=== PATIENT | female | born 1990 | race Caucasian/White ===

== ENCOUNTER 2016-12-29 18:01 | Emergency (ER) | payer SELFPAY ==
[~2016-12-29] VITALS: Ht 162.6 cm; Wt 48.7 kg
[~2016-12-29 18:01] MED LIST: BACTRIM,SEPT1 TABLET PO; BIOTIN10000 MC1 PO; CITRATE OF MAG296 ML PO; ENDOCET 5-3251 EACH PO; FLAGYL500 MG PO; FLEXERIL10 MG PO; IMITREX100 MG PO; MACROBID100 MG PO; MICROGESTIN1 EAC1 PO; MICROGESTIN1 EACH PO; MIRALAX17 GM PO; NAPROSYN500 MG PO; NAPROXEN500 MG PO; NO MEDICATIONS; PEPCID40 MG PO; REGLAN10 MG PO; TYLENOL WITH C1 EACH PO; WOMEN'S DAILY1 EAC1 PO
[2016-12-29 19:31] LABS: HEMATOCRIT 39.1 % (36.0-46.0); MCH 28.6 PG (29.0-34.0); MCHC 33.5 G/DL (30.0-36.0); MCV 85.4 FL (83-99); MEAN PLAT.VOLUME 8.7 uM^3 (9.5-12.4); PLATELET COUNT 260 K/uL (156-360); RBC DIS.WIDTH-CV 11.9 % (11.8-14.6); RBC DIS.WIDTH-SD 36.6 % (39-53); RED BLOOD COUNT 4.58 M/uL (3.80-5.20); WHITE BLOOD COUNT 11.7 K/uL (4.1-10.2)
[2016-12-29 19:39] LABS: CHLORIDE 108 mEq/L (99-109); POTASSIUM 4.2 mEq/L (3.7-5.4); SODIUM 139 mEq/L (136-147)
[2016-12-29 19:41] LABS: GLUCOSE 90 mg/dL (70-99)
[2016-12-29 19:43] LABS: ANION GAP 7 MEQ/L (2-14)
[2016-12-29 19:45] LABS: GFR ESTIMATE (CALCULATED) > 59 mL/min/
[2016-12-29 19:46] LABS: UREA NITROGEN (BUN) 9 mg/dL (9-23)
[2016-12-29 19:47] LABS: ADD MIUA? YES; BILIRUBIN NEGATIVE; BLOOD MODERATE; COLOR YELLOW ((YELLOW)); GLUCOSE (STRIP) NEGATIVE; KETONES NEGATIVE; LEUKOCYTES MODERATE; NITRITE NEGATIVE; PROTEIN (STRIP) 30; UROBILINOGEN 0.2 MG/DL (0.2-1.0)
[2016-12-29 19:53] LABS: INTERNAL CONTROL VALID? YES
[2016-12-29 20:40] LABS: EPITHELIAL CELLS 1+ /HPF; RED BLOOD CELLS 20-30 /HPF (0-5); WHITE BLOOD CELLS 30-40 /HPF (0-5)
[2016-12-29 20:41] LABS: BACTERIA 2+ /HPF; CASTS NONE SEEN /LPF; CRYSTALS NONE SEEN; MUCUS TRACE /LPF; UCUL ADDED? YES
[2016-12-29] MEDS ORDERED: MACROBID100 MG PO (22:04)
[2016-12-29] MEDS ORDERED: PERCOCET 5/31 TABLET PO (22:04)
[2016-12-29] MEDS ORDERED: ZOFRAN ODT4 MG PO (22:04)
[2016-12-29 22:17] VITALS: BP 112/64
== END 2016-12-29 22:19 | disposition home or self-care (01) ==
LOC: EME 18:01
PROVIDERS: Emergency Medicine
DX: N39.0 Urinary tract infection, site not specified (principal); R10.9 Unspecified abdominal pain; N83.202 Unspecified ovarian cyst, left side; K59.00 Constipation, unspecified; Z87.442 Personal history of urinary calculi
CPT/HCPCS: 74176; 80048; 81003; 84703; 85027; 87077; 87086; 87186; 99281; 99284; J1885

== ENCOUNTER 2017-01-16 22:38 | Emergency (ER) | payer SELFPAY ==
[~2017-01-16] VITALS: Ht 162.6 cm; Wt 47.6 kg
[~2017-01-16 22:38] MED LIST changes: +PERCOCET 5/31 TABLET PO; +ZOFRAN ODT4 MG PO
[2017-01-16 23:34] LABS: HEMATOCRIT 36.9 % (36.0-46.0); MCH 27.6 PG (29.0-34.0); MCHC 33.1 G/DL (30.0-36.0); MCV 83.5 FL (83-99); MEAN PLAT.VOLUME 8.9 uM^3 (9.5-12.4); PLATELET COUNT 408 K/uL (156-360); RBC DIS.WIDTH-CV 11.9 % (11.8-14.6); RED BLOOD COUNT 4.42 M/uL (3.80-5.20); WHITE BLOOD COUNT 10.8 K/uL (4.1-10.2)
[2017-01-16 23:45] LABS: CHLORIDE 105 mEq/L (99-109); POTASSIUM 3.6 mEq/L (3.7-5.4); SODIUM 139 mEq/L (136-147)
[2017-01-16 23:47] LABS: GLUCOSE 88 mg/dL (70-99)
[2017-01-16 23:48] LABS: ANION GAP 11 MEQ/L (2-14)
[2017-01-16 23:49] LABS: TOTAL BILIRUBIN 0.3 mg/dL (0.0-1.0)
[2017-01-16 23:50] LABS: ALKALINE PHOSPHATASE 59 IU/L (3-129)
[2017-01-16 23:51] LABS: GFR ESTIMATE (CALCULATED) > 59 mL/min/
[2017-01-16 23:52] LABS: UREA NITROGEN (BUN) 10 mg/dL (9-23)
[2017-01-17] LABS: QUANTITATIVE HCG 1826.3 MIU/ML
[2017-01-17 00:29] LABS: ADD MIUA? YES; BILIRUBIN NEGATIVE; BLOOD SMALL; COLOR YELLOW ((YELLOW)); GLUCOSE (STRIP) NEGATIVE; KETONES NEGATIVE; LEUKOCYTES NEGATIVE; NITRITE NEGATIVE; PROTEIN (STRIP) NEGATIVE; SPECIFIC GRAVITY 1.013 (1.000-1.030); UROBILINOGEN 0.2 MG/DL (0.2-1.0)
[2017-01-17 00:35] LABS: BACTERIA NONE SEEN /HPF; EPITHELIAL CELLS 1+ /HPF; MUCUS TRACE /LPF; RED BLOOD CELLS 0-5 /HPF (0-5); UCUL ADDED? NO; WHITE BLOOD CELLS 0-5 /HPF (0-5)
[2017-01-17 01:38] VITALS: BP 115/70
== END 2017-01-17 01:40 | disposition home or self-care (01) ==
LOC: EME 22:38 → EXP 22:38
DX: O26.891 Other specified pregnancy related conditions, first trimester (principal); R10.2 Pelvic and perineal pain; O34.81 Maternal care for other abnormalities of pelvic organs, first trimester; N83.202 Unspecified ovarian cyst, left side; R11.0 Nausea; M54.9 Dorsalgia, unspecified; Z87.442 Personal history of urinary calculi; Z3A.01 Less than 8 weeks gestation of pregnancy
CPT/HCPCS: 76801; 80053; 81003; 84702; 85027; 99281; 99283

== ENCOUNTER 2017-01-30 18:10 | Emergency (ER) | payer SELFPAY ==
[~2017-01-30] VITALS: Ht 160 cm; Wt 46.0 kg
[2017-01-30 18:52] LABS: HEMATOCRIT 35.9 % (36.0-46.0); MCH 28.3 PG (29.0-34.0); MCV 83.3 FL (83-99); MEAN PLAT.VOLUME 8.7 uM^3 (9.5-12.4); PLATELET COUNT 305 K/uL (156-360); RBC DIS.WIDTH-CV 12.1 % (11.8-14.6); RED BLOOD COUNT 4.31 M/uL (3.80-5.20); WHITE BLOOD COUNT 8.6 K/uL (4.1-10.2)
[2017-01-30 19:00] LABS: CHLORIDE 103 mEq/L (99-109); POTASSIUM 3.8 mEq/L (3.7-5.4); SODIUM 136 mEq/L (136-147)
[2017-01-30 19:01] LABS: GLUCOSE 77 mg/dL (70-99)
[2017-01-30 19:03] LABS: ANION GAP 9 MEQ/L (2-14)
[2017-01-30 19:05] LABS: GFR ESTIMATE (CALCULATED) > 59 mL/min/
[2017-01-30 19:06] LABS: UREA NITROGEN (BUN) 7 mg/dL (9-23)
[2017-01-30 19:08] LABS: ADD MIUA? YES; BILIRUBIN NEGATIVE; BLOOD NEGATIVE; COLOR YELLOW ((YELLOW)); GLUCOSE (STRIP) NEGATIVE; KETONES NEGATIVE; LEUKOCYTES NEGATIVE; NITRITE NEGATIVE; PROTEIN (STRIP) 30; SPECIFIC GRAVITY 1.025 (1.000-1.030); UROBILINOGEN 0.2 MG/DL (0.2-1.0)
[2017-01-30 19:12] LABS: BACTERIA NONE SEEN /HPF; EPITHELIAL CELLS 1+ /HPF; MUCUS 2+ /LPF; RED BLOOD CELLS NONE SEEN /HPF (0-5); UCUL ADDED? NO; WHITE BLOOD CELLS NONE SEEN /HPF (0-5)
[2017-01-30 19:16] LABS: QUANTITATIVE HCG 14718.4 MIU/ML
[2017-01-30 20:56] VITALS: BP 113/60
== END 2017-01-30 20:57 | disposition home or self-care (01) ==
LOC: EME 18:10 → EXP 18:10
PROVIDERS: Physician Assistant
DX: O20.0 Threatened abortion (principal); O34.81 Maternal care for other abnormalities of pelvic organs, first trimester; N83.202 Unspecified ovarian cyst, left side; Z3A.01 Less than 8 weeks gestation of pregnancy; Z87.442 Personal history of urinary calculi
CPT/HCPCS: 76801; 80048; 81003; 84702; 85027; 86900; 86901; 99281; 99284

== ENCOUNTER 2017-02-24 16:32 | Emergency (ER) | payer SELFPAY ==
[~2017-02-24] VITALS: Ht 160 cm; Wt 46.0 kg
[2017-02-24 17:09] LABS: ADD MIUA? YES; BILIRUBIN NEGATIVE; BLOOD SMALL; COLOR YELLOW ((YELLOW)); GLUCOSE (STRIP) NEGATIVE; KETONES NEGATIVE; LEUKOCYTES MODERATE; NITRITE NEGATIVE; PROTEIN (STRIP) NEGATIVE; SPECIFIC GRAVITY 1.019 (1.000-1.030); UROBILINOGEN 0.2 MG/DL (0.2-1.0)
[2017-02-24 17:38] LABS: BACTERIA 1+ /HPF; EPITHELIAL CELLS 1+ /HPF; MUCUS NONE SEEN /LPF; RED BLOOD CELLS 0-5 /HPF (0-5); WHITE BLOOD CELLS 40-50 /HPF (0-5)
[2017-02-24 17:44] LABS: HEMATOCRIT 39.1 % (36.0-46.0); MCH 27.9 PG (29.0-34.0); MCHC 33.5 G/DL (30.0-36.0); MCV 83.2 FL (83-99); MEAN PLAT.VOLUME 8.8 uM^3 (9.5-12.4); PLATELET COUNT 268 K/uL (156-360); RBC DIS.WIDTH-CV 12.3 % (11.8-14.6); RBC DIS.WIDTH-SD 37.5 % (39-53); WHITE BLOOD COUNT 9.4 K/uL (4.1-10.2)
[2017-02-24 17:52] LABS: CHLORIDE 106 mEq/L (99-109); POTASSIUM 3.7 mEq/L (3.7-5.4); SODIUM 139 mEq/L (136-147)
[2017-02-24 17:54] LABS: GLUCOSE 91 mg/dL (70-99)
[2017-02-24 17:56] LABS: ANION GAP 7 MEQ/L (2-14)
[2017-02-24 17:58] LABS: GFR ESTIMATE (CALCULATED) > 59 mL/min/
[2017-02-24 17:59] LABS: UREA NITROGEN (BUN) 7 mg/dL (9-23)
[2017-02-24 18:07] LABS: QUANTITATIVE HCG 8150.7 MIU/ML
[2017-02-24] MEDS ORDERED: KEFLEX500 MG PO (18:17)
[2017-02-24 18:22] VITALS: BP 92/57
== END 2017-02-24 18:22 | disposition home or self-care (01) ==
LOC: EME 16:32
PROVIDERS: Physician Assistant
DX: O23.41 Unspecified infection of urinary tract in pregnancy, first trimester (principal); Z3A.10 10 weeks gestation of pregnancy; Z87.442 Personal history of urinary calculi
CPT/HCPCS: 80048; 81003; 84702; 85027; 99281; 99284

== ENCOUNTER 2017-03-21 17:53 | Emergency (ER) | payer OTHER ==
[~2017-03-21 17:53] MED LIST changes: +KEFLEX500 MG PO
== END 2017-03-21 18:50 | disposition left against medical advice (07) ==
LOC: EME 17:53
DX: R10.2 Pelvic and perineal pain (principal); Z53.21 Procedure and treatment not carried out due to patient leaving prior to being seen by health care provider

== ENCOUNTER 2017-06-05 09:14 | Emergency (ER) | payer OTHER ==
[~2017-06-05] VITALS: Ht 160 cm; Wt 45.5 kg
[2017-06-05 09:55] LABS: EOSINOPHIL COUNT 0.2 K/uL (0-0.3); HEMATOCRIT 39.7 % (36.0-46.0); IMMATURE GRANULOCYTE (%) 0.4 % (0.0-0.7); IMMATURE GRANULOCYTE COUNT 0.1 K/uL; INSTRUMENT ABS NEUTROPHIL CT 14.1 K/uL; LYMPHOCYTE COUNT 0.5 K/uL (1.0-2.8); MCV 82.4 FL (83-99); MEAN PLAT.VOLUME 8.6 uM^3 (9.5-12.4); MONOCYTE (%) 4.6 % (3-12); MONOCYTE COUNT 0.7 K/uL (0-0.8); NEUTROPHIL (%) 90.4 % (45-76); NEUTROPHIL COUNT 14.1 K/uL (1.8-6.4); PLATELET COUNT 225 K/uL (156-360); RBC DIS.WIDTH-CV 12.2 % (11.8-14.6); RED BLOOD COUNT 4.82 M/uL (3.80-5.20); WHITE BLOOD COUNT 15.6 K/uL (4.1-10.2)
[2017-06-05 10:04] LABS: CHLORIDE 111 mEq/L (99-109); POTASSIUM 3.5 mEq/L (3.7-5.4); SODIUM 141 mEq/L (136-147)
[2017-06-05 10:06] LABS: GLUCOSE 106 mg/dL (70-99)
[2017-06-05 10:07] LABS: ANION GAP 13 MEQ/L (2-14)
[2017-06-05 10:09] LABS: GFR ESTIMATE (CALCULATED) > 59 mL/min/
[2017-06-05 10:10] LABS: UREA NITROGEN (BUN) 10 mg/dL (9-23)
[2017-06-05 10:14] LABS: INTER. NORMALIZED RATIO 1.1; PROTHROMBIN TIME 12.5 SEC (10.2-12.9)
[2017-06-05 10:15] LABS: LIPASE 19 U/L (1.0-51.0); TROP-I INTERPRETATION NEGATIVE; TROPONIN-I < 0.01 ng/mL (0.0-0.30)
[2017-06-05 10:16] LABS: PTT 29.1 SEC (25-37)
[2017-06-05 10:20] LABS: QUANTITATIVE HCG < 4.0 MIU/ML
[2017-06-05 13:05] LABS: ADD MIUA? YES; BILIRUBIN NEGATIVE; BLOOD SMALL; COLOR COLORLESS ((YELLOW)); GLUCOSE (STRIP) NEGATIVE; KETONES NEGATIVE; LEUKOCYTES NEGATIVE; NITRITE NEGATIVE; PROTEIN (STRIP) NEGATIVE; SPECIFIC GRAVITY 1.026 (1.000-1.030); UROBILINOGEN 0.2 MG/DL (0.2-1.0)
[2017-06-05 13:07] LABS: BACTERIA NONE SEEN /HPF; EPITHELIAL CELLS RARE /HPF; MUCUS TRACE /LPF; RED BLOOD CELLS 0-5 /HPF (0-5); UCUL ADDED? NO; WHITE BLOOD CELLS 0-5 /HPF (0-5)
[2017-06-05] MEDS ORDERED: ZOFRAN ODT4 MG PO (13:48)
[2017-06-05 14:18] VITALS: BP 113/66
== END 2017-06-05 14:19 | disposition home or self-care (01) ==
LOC: EME 09:14
PROVIDERS: Emergency Medicine
DX: K52.9 Noninfective gastroenteritis and colitis, unspecified (principal); M54.5 Low back pain; E86.0 Dehydration; Z87.442 Personal history of urinary calculi; Z86.73 Personal history of transient ischemic attack (TIA), and cerebral infarction without residual deficits
CPT/HCPCS: 71020; 71275; 74176; 80048; 81003; 83690; 84484; 84702; 85025; 85379; 85610; 85730; 93005; 99281; 99285; J2270; J2405; J3010; J7030

== ENCOUNTER 2017-06-14 02:38 | Emergency (ER) | payer OTHER ==
[2017-06-14 03:58] LABS: HEMATOCRIT 40.2 % (36.0-46.0); MCHC 33.8 G/DL (30.0-36.0); MCV 82.7 FL (83-99); MEAN PLAT.VOLUME 8.7 uM^3 (9.5-12.4); RBC DIS.WIDTH-CV 12.4 % (11.8-14.6); RBC DIS.WIDTH-SD 37.7 % (39-53); RED BLOOD COUNT 4.86 M/uL (3.80-5.20); WHITE BLOOD COUNT 13.2 K/uL (4.1-10.2)
[2017-06-14 03:59] LABS: PLATELET COUNT 383 K/uL (156-360)
[2017-06-14 04:01] LABS: CHLORIDE 108 mEq/L (99-109); POTASSIUM 3.4 mEq/L (3.7-5.4); SODIUM 142 mEq/L (136-147)
[2017-06-14 04:02] LABS: GLUCOSE 113 mg/dL (70-99)
[2017-06-14 04:04] LABS: ANION GAP 14 MEQ/L (2-14)
[2017-06-14 04:06] LABS: GFR ESTIMATE (CALCULATED) > 59 mL/min/
[2017-06-14 04:07] LABS: UREA NITROGEN (BUN) 7 mg/dL (9-23)
[2017-06-14 04:13] LABS: TROP-I INTERPRETATION NEGATIVE; TROPONIN-I < 0.01 ng/mL (0.0-0.30)
[2017-06-14 05:45] LABS: ADD MIUA? YES; BILIRUBIN NEGATIVE; BLOOD MODERATE; COLOR YELLOW ((YELLOW)); GLUCOSE (STRIP) NEGATIVE; KETONES NEGATIVE; LEUKOCYTES NEGATIVE; NITRITE NEGATIVE; PROTEIN (STRIP) NEGATIVE; SPECIFIC GRAVITY 1.011 (1.000-1.030); UROBILINOGEN 0.2 MG/DL (0.2-1.0)
[2017-06-14 05:47] LABS: INTERNAL CONTROL VALID? YES
[2017-06-14 05:48] LABS: BACTERIA NONE SEEN /HPF; EPITHELIAL CELLS RARE /HPF; MUCUS 1+ /LPF; RED BLOOD CELLS 0-5 /HPF (0-5); UCUL ADDED? NO; WHITE BLOOD CELLS 0-5 /HPF (0-5)
[2017-06-14] MEDS ORDERED: IBUPROFEN600 MG PO (07:15)
[2017-06-14 08:50] VITALS: BP 103/72
== END 2017-06-14 08:50 | disposition home or self-care (01) ==
LOC: EME 02:38
PROVIDERS: Emergency Medicine
DX: R10.9 Unspecified abdominal pain (principal); N83.209 Unspecified ovarian cyst, unspecified side; Z87.442 Personal history of urinary calculi
CPT/HCPCS: 71020; 74176; 80048; 81003; 84484; 84703; 85027; 93005; 99281; 99284; J1200; J2765; J7030

== ENCOUNTER 2017-07-08 14:21 | Emergency (ER) | payer OTHER ==
[~2017-07-08] VITALS: Ht 160 cm; Wt 42.3 kg
[~2017-07-08 14:21] MED LIST changes: +IBUPROFEN600 MG PO
[2017-07-08 14:58] LABS: ADD MIUA? YES; BILIRUBIN NEGATIVE; BLOOD SMALL; COLOR YELLOW ((YELLOW)); GLUCOSE (STRIP) NEGATIVE; KETONES NEGATIVE; LEUKOCYTES MODERATE; NITRITE NEGATIVE; PROTEIN (STRIP) 30; SPECIFIC GRAVITY 1.021 (1.000-1.030); UROBILINOGEN 0.2 MG/DL (0.2-1.0)
[2017-07-08 15:08] LABS: HEMATOCRIT 37.8 % (36.0-46.0); MCH 28.3 PG (29.0-34.0); MCHC 34.1 G/DL (30.0-36.0); MCV 82.9 FL (83-99); MEAN PLAT.VOLUME 9.1 uM^3 (9.5-12.4); PLATELET COUNT 272 K/uL (156-360); RBC DIS.WIDTH-CV 12.5 % (11.8-14.6); RBC DIS.WIDTH-SD 38.1 % (39-53); RED BLOOD COUNT 4.56 M/uL (3.80-5.20)
[2017-07-08 15:09] LABS: BACTERIA 1+ /HPF; EPITHELIAL CELLS 2+ /HPF; MUCUS 1+ /LPF; RED BLOOD CELLS RARE /HPF (0-5); UCUL ADDED? YES
[2017-07-08 15:10] LABS: CASTS NONE SEEN /LPF; CRYSTALS NONE SEEN
[2017-07-08 15:17] LABS: CHLORIDE 107 mEq/L (99-109); POTASSIUM 3.9 mEq/L (3.7-5.4); SODIUM 140 mEq/L (136-147)
[2017-07-08 15:20] LABS: GLUCOSE 92 mg/dL (70-99)
[2017-07-08 15:21] LABS: ANION GAP 12 MEQ/L (2-14)
[2017-07-08 15:22] LABS: TOTAL BILIRUBIN 0.9 mg/dL (0.0-1.0)
[2017-07-08 15:23] LABS: ALKALINE PHOSPHATASE 45 IU/L (3-129); GFR ESTIMATE (CALCULATED) > 59 mL/min/
[2017-07-08 15:24] LABS: UREA NITROGEN (BUN) 11 mg/dL (9-23)
[2017-07-08 15:34] LABS: QUANTITATIVE HCG 181.3 MIU/ML
[2017-07-08] MEDS ORDERED: KEFLEX500 MG PO (16:22)
[2017-07-08 17:18] VITALS: BP 120/64
[2017-07-10 13:42] LABS: CHLAMYDIA TRACHOMATIS NEGATIVE; NEISSERIA GONORRHOEAE NEGATIVE
== END 2017-07-08 17:19 | disposition home or self-care (01) ==
LOC: EME 14:21
PROVIDERS: Physician Assistant Medical
DX: O26.891 Other specified pregnancy related conditions, first trimester (principal); R10.2 Pelvic and perineal pain; N89.8 Other specified noninflammatory disorders of vagina; R11.0 Nausea; O23.41 Unspecified infection of urinary tract in pregnancy, first trimester; Z87.442 Personal history of urinary calculi
CPT/HCPCS: 76856; 80053; 81003; 83690; 84702; 85027; 87086; 87210; 87491; 87591; 99281; 99284; J0696

== ENCOUNTER 2017-07-12 10:37 | Emergency (ER) | payer OTHER ==
[~2017-07-12] VITALS: Ht 160 cm; Wt 41.6 kg
[2017-07-12 11:34] LABS: HEMATOCRIT 39.6 % (36.0-46.0); MCH 28.7 PG (29.0-34.0); MCHC 34.3 G/DL (30.0-36.0); MCV 83.5 FL (83-99); MEAN PLAT.VOLUME 9.2 uM^3 (9.5-12.4); PLATELET COUNT 301 K/uL (156-360); RBC DIS.WIDTH-CV 12.3 % (11.8-14.6); RBC DIS.WIDTH-SD 37.6 % (39-53); RED BLOOD COUNT 4.74 M/uL (3.80-5.20); WHITE BLOOD COUNT 8.9 K/uL (4.1-10.2)
[2017-07-12 11:43] LABS: CHLORIDE 104 mEq/L (99-109); POTASSIUM 3.6 mEq/L (3.7-5.4); SODIUM 138 mEq/L (136-147)
[2017-07-12 11:45] LABS: GLUCOSE 86 mg/dL (70-99)
[2017-07-12 11:46] LABS: ANION GAP 12 MEQ/L (2-14)
[2017-07-12 11:49] LABS: GFR ESTIMATE (CALCULATED) > 59 mL/min/; UREA NITROGEN (BUN) 11 mg/dL (9-23)
[2017-07-12 11:51] LABS: TROP-I INTERPRETATION NEGATIVE; TROPONIN-I < 0.01 ng/mL (0.0-0.30)
[2017-07-12 12:22] LABS: ALKALINE PHOSPHATASE 55 IU/L (3-129)
[2017-07-12 12:25] LABS: DIRECT BILIRUBIN 0.3 mg/dL (0.0-0.3); TOTAL BILIRUBIN 0.7 mg/dL (0.0-1.0)
[2017-07-12 12:26] LABS: LIPASE 33 U/L (1.0-51.0)
[2017-07-12 13:19] LABS: QUANTITATIVE HCG 968.2 MIU/ML
[2017-07-12] MEDS ORDERED: DICLEGIS DR 101 EACH PO (13:40)
[2017-07-12 13:50] VITALS: BP 125/73
== END 2017-07-12 14:42 | disposition home or self-care (01) ==
LOC: EME 10:37
DX: O26.899 Other specified pregnancy related conditions, unspecified trimester (principal); R07.89 Other chest pain; R11.0 Nausea; Z87.442 Personal history of urinary calculi
CPT/HCPCS: 71020; 80048; 80076; 83690; 84484; 84702; 85027; 93005; 99281; 99283

== ENCOUNTER 2017-07-23 06:30 | Emergency (ER) | payer OTHER ==
[~2017-07-23] VITALS: Ht 160 cm; Wt 41.7 kg
[~2017-07-23 06:30] MED LIST changes: +DICLEGIS DR 101 EACH PO
[2017-07-23 06:59] LABS: HEMATOCRIT 34.8 % (36.0-46.0); MCH 28.7 PG (29.0-34.0); MCHC 34.2 G/DL (30.0-36.0); MCV 84.1 FL (83-99); MEAN PLAT.VOLUME 8.8 uM^3 (9.5-12.4); PLATELET COUNT 265 K/uL (156-360); RBC DIS.WIDTH-CV 12.1 % (11.8-14.6); RBC DIS.WIDTH-SD 36.6 % (39-53); RED BLOOD COUNT 4.14 M/uL (3.80-5.20); WHITE BLOOD COUNT 7.7 K/uL (4.1-10.2)
[2017-07-23 07:13] LABS: CHLORIDE 107 mEq/L (99-109); POTASSIUM 3.3 mEq/L (3.7-5.4); SODIUM 140 mEq/L (136-147)
[2017-07-23 07:15] LABS: GLUCOSE 84 mg/dL (70-99)
[2017-07-23 07:16] LABS: ANION GAP 9 MEQ/L (2-14)
[2017-07-23 07:17] LABS: TOTAL BILIRUBIN 0.8 mg/dL (0.0-1.0)
[2017-07-23 07:18] LABS: ALKALINE PHOSPHATASE 41 IU/L (3-129)
[2017-07-23 07:19] LABS: GFR ESTIMATE (CALCULATED) > 59 mL/min/
[2017-07-23 07:20] LABS: UREA NITROGEN (BUN) 9 mg/dL (9-23)
[2017-07-23 07:27] LABS: QUANTITATIVE HCG 6430.5 MIU/ML
[2017-07-23 10:00] LABS: ADD MIUA? YES; BILIRUBIN NEGATIVE; BLOOD SMALL; COLOR YELLOW ((YELLOW)); GLUCOSE (STRIP) NEGATIVE; KETONES 20; LEUKOCYTES TRACE; NITRITE NEGATIVE; PROTEIN (STRIP) NEGATIVE; SPECIFIC GRAVITY 1.016 (1.000-1.030); UROBILINOGEN 0.2 MG/DL (0.2-1.0)
[2017-07-23 10:03] LABS: BACTERIA RARE /HPF; EPITHELIAL CELLS 1+ /HPF; MUCUS 3+ /LPF; RED BLOOD CELLS 0-5 /HPF (0-5); UCUL ADDED? YES
[2017-07-23] MEDS ORDERED: MACROBID100 MG PO (10:31)
[2017-07-23 10:56] VITALS: BP 92/52
== END 2017-07-23 10:57 | disposition home or self-care (01) ==
LOC: EME 06:30
DX: O23.41 Unspecified infection of urinary tract in pregnancy, first trimester (principal); O99.611 Diseases of the digestive system complicating pregnancy, first trimester; K21.0 Gastro-esophageal reflux disease with esophagitis; O20.8 Other hemorrhage in early pregnancy; M25.512 Pain in left shoulder; H53.8 Other visual disturbances; Z87.442 Personal history of urinary calculi; Z86.73 Personal history of transient ischemic attack (TIA), and cerebral infarction without residual deficits; Z3A.01 Less than 8 weeks gestation of pregnancy
CPT/HCPCS: 76801; 80053; 81003; 84702; 85027; 87086; 93005; 99281; 99285

== ENCOUNTER 2017-07-24 13:33 | Emergency (ER) | payer OTHER | END 2017-07-24 13:54 | disposition left against medical advice (07) | LOC: EME 13:33 | DX: R42 Dizziness and giddiness (principal); J02.9 Acute pharyngitis, unspecified; Z53.21 Procedure and treatment not carried out due to patient leaving prior to being seen by health care provider ==

== ENCOUNTER 2017-08-05 01:03 | Emergency (ER) | payer OTHER ==
[~2017-08-05] VITALS: Ht 160 cm; Wt 41.6 kg
[2017-08-05 01:24] LABS: ADD MIUA? YES; BILIRUBIN NEGATIVE; BLOOD NEGATIVE; COLOR YELLOW ((YELLOW)); GLUCOSE (STRIP) NEGATIVE; KETONES NEGATIVE; LEUKOCYTES TRACE; NITRITE NEGATIVE; PROTEIN (STRIP) NEGATIVE; SPECIFIC GRAVITY 1.021 (1.000-1.030); UROBILINOGEN 0.2 MG/DL (0.2-1.0)
[2017-08-05 01:30] LABS: BACTERIA RARE /HPF; EPITHELIAL CELLS 1+ /HPF; MUCUS 1+ /LPF; UCUL ADDED? NO; WHITE BLOOD CELLS 0-5 /HPF (0-5)
[2017-08-05 02:05] LABS: EOSINOPHIL (%) 6.6 % (0-5); EOSINOPHIL COUNT 0.7 K/uL (0-0.3); HEMATOCRIT 37.3 % (36.0-46.0); IMMATURE GRANULOCYTE (%) 0.1 % (0.0-0.7); INSTRUMENT ABS NEUTROPHIL CT 5.7 K/uL; LYMPHOCYTE COUNT 2.6 K/uL (1.0-2.8); MCH 28.5 PG (29.0-34.0); MCHC 33.5 G/DL (30.0-36.0); MEAN PLAT.VOLUME 8.4 uM^3 (9.5-12.4); MONOCYTE (%) 8.8 % (3-12); MONOCYTE COUNT 0.9 K/uL (0-0.8); NEUTROPHIL (%) 57.8 % (45-76); NEUTROPHIL COUNT 5.7 K/uL (1.8-6.4); PLATELET COUNT 300 K/uL (156-360); RBC DIS.WIDTH-CV 11.9 % (11.8-14.6); RBC DIS.WIDTH-SD 36.8 % (39-53); RED BLOOD COUNT 4.39 M/uL (3.80-5.20); WHITE BLOOD COUNT 9.8 K/uL (4.1-10.2)
[2017-08-05 02:14] LABS: CHLORIDE 107 mEq/L (99-109); POTASSIUM 3.6 mEq/L (3.7-5.4); SODIUM 139 mEq/L (136-147)
[2017-08-05 02:15] LABS: MAGNESIUM 2.1 mg/dL (1.3-2.7)
[2017-08-05 02:16] LABS: GLUCOSE 84 mg/dL (70-99)
[2017-08-05 02:18] LABS: ANION GAP 10 MEQ/L (2-14); TOTAL BILIRUBIN 0.3 mg/dL (0.0-1.0)
[2017-08-05 02:20] LABS: ALKALINE PHOSPHATASE 48 IU/L (3-129); GFR ESTIMATE (CALCULATED) > 59 mL/min/
[2017-08-05 02:21] LABS: UREA NITROGEN (BUN) 7 mg/dL (9-23)
[2017-08-05 02:24] LABS: LIPASE 43 U/L (1.0-51.0)
[2017-08-05 02:49] LABS: QUANTITATIVE HCG 29122.6 MIU/ML
[2017-08-05 04:30] VITALS: BP 109/62
== END 2017-08-05 04:32 | disposition home or self-care (01) ==
LOC: EME 01:03
PROVIDERS: Emergency Medicine
DX: O26.891 Other specified pregnancy related conditions, first trimester (principal); R10.2 Pelvic and perineal pain; N83.12 Corpus luteum cyst of left ovary; Z3A.08 8 weeks gestation of pregnancy; O99.341 Other mental disorders complicating pregnancy, first trimester; F32.9 Major depressive disorder, single episode, unspecified; Z86.73 Personal history of transient ischemic attack (TIA), and cerebral infarction without residual deficits; Z87.442 Personal history of urinary calculi; Z88.1 Allergy status to other antibiotic agents
CPT/HCPCS: 76801; 80053; 81003; 83690; 83735; 84702; 85025; 99281; 99284

== ENCOUNTER → 2017-08-28 15:55 | Emergency (ER) | payer OTHER ==
[~2017-08-28] VITALS: Ht 162.6 cm; Wt 41.8 kg
[2017-08-28 16:59] VITALS: BP 121/66
[2017-08-28 17:19] LABS: HEMATOCRIT 37.7 % (36.0-46.0); MCH 28.5 PG (29.0-34.0); MCHC 34.2 G/DL (30.0-36.0); MCV 83.4 FL (83-99); MEAN PLAT.VOLUME 8.5 uM^3 (9.5-12.4); PLATELET COUNT 285 K/uL (156-360); RBC DIS.WIDTH-CV 12.5 % (11.8-14.6); RBC DIS.WIDTH-SD 38.2 % (39-53); RED BLOOD COUNT 4.52 M/uL (3.80-5.20); WHITE BLOOD COUNT 10.8 K/uL (4.1-10.2)
[2017-08-28 17:24] LABS: ADD MIUA? YES; BILIRUBIN NEGATIVE; BLOOD SMALL; COLOR STRAW ((YELLOW)); GLUCOSE (STRIP) NEGATIVE; KETONES NEGATIVE; LEUKOCYTES TRACE; NITRITE NEGATIVE; PROTEIN (STRIP) NEGATIVE; SPECIFIC GRAVITY 1.009 (1.000-1.030); UROBILINOGEN 0.2 MG/DL (0.2-1.0)
[2017-08-28 17:27] LABS: CHLORIDE 105 mEq/L (99-109); POTASSIUM 3.7 mEq/L (3.7-5.4); SODIUM 136 mEq/L (136-147)
[2017-08-28 17:28] LABS: GLUCOSE 85 mg/dL (70-99)
[2017-08-28 17:30] LABS: ANION GAP 11 MEQ/L (2-14)
[2017-08-28 17:31] LABS: BACTERIA NONE SEEN /HPF; EPITHELIAL CELLS 1+ /HPF; MUCUS NONE SEEN /LPF; RED BLOOD CELLS 0-5 /HPF (0-5); UCUL ADDED? NO; WHITE BLOOD CELLS 0-5 /HPF (0-5)
[2017-08-28 17:32] LABS: GFR ESTIMATE (CALCULATED) > 59 mL/min/
[2017-08-28 17:33] LABS: UREA NITROGEN (BUN) 6 mg/dL (9-23)
[2017-08-28 17:58] LABS: QUANTITATIVE HCG 98681.5 MIU/ML
== END | disposition left against medical advice (07) ==
LOC: EME 15:55
DX: R10.9 Unspecified abdominal pain (principal); Z53.21 Procedure and treatment not carried out due to patient leaving prior to being seen by health care provider
CPT/HCPCS: 80048; 81003; 84702; 85027

== ENCOUNTER 2017-08-31 21:00 | Emergency (ER) | payer OTHER ==
[~2017-08-31] VITALS: Ht 160 cm; Wt 42.2 kg
[2017-08-31 21:17] LABS: HEMATOCRIT 36.3 % (36.0-46.0); MCHC 34.7 G/DL (30.0-36.0); MCV 83.4 FL (83-99); MEAN PLAT.VOLUME 8.6 uM^3 (9.5-12.4); PLATELET COUNT 283 K/uL (156-360); RBC DIS.WIDTH-CV 12.4 % (11.8-14.6); RBC DIS.WIDTH-SD 37.7 % (39-53); RED BLOOD COUNT 4.35 M/uL (3.80-5.20); WHITE BLOOD COUNT 13.9 K/uL (4.1-10.2)
[2017-08-31 21:23] LABS: ADD MIUA? YES; BILIRUBIN NEGATIVE; BLOOD SMALL; COLOR AMBER ((YELLOW)); GLUCOSE (STRIP) NEGATIVE; KETONES 20; LEUKOCYTES SMALL; NITRITE NEGATIVE; PROTEIN (STRIP) 30; SPECIFIC GRAVITY 1.036 (1.000-1.030)
[2017-08-31 21:27] LABS: CHLORIDE 106 mEq/L (99-109); POTASSIUM 3.7 mEq/L (3.7-5.4); SODIUM 138 mEq/L (136-147)
[2017-08-31 21:29] LABS: GLUCOSE 98 mg/dL (70-99)
[2017-08-31 21:31] LABS: ANION GAP 10 MEQ/L (2-14); TOTAL BILIRUBIN 0.4 mg/dL (0.0-1.0)
[2017-08-31 21:31] LABS: CASTS NONE SEEN /LPF; EPITHELIAL CELLS 3+ /HPF; MUCUS 2+ /LPF
[2017-08-31 21:32] LABS: BACTERIA RARE /HPF; RED BLOOD CELLS 0-5 /HPF (0-5); UCUL ADDED? NO; WHITE BLOOD CELLS 0-5 /HPF (0-5)
[2017-08-31 21:33] LABS: ALKALINE PHOSPHATASE 46 IU/L (3-129); GFR ESTIMATE (CALCULATED) > 59 mL/min/
[2017-08-31 21:34] LABS: UREA NITROGEN (BUN) 8 mg/dL (9-23)
[2017-08-31 21:59] LABS: QUANTITATIVE HCG 94432.1 MIU/ML
[2017-08-31 22:41] LABS: MAGNESIUM 1.9 mg/dL (1.3-2.7)
[2017-08-31 22:49] LABS: CREATINE KINASE 33 IU/L (1-294); LIPASE 21 U/L (1.0-51.0)
[2017-08-31] MEDS ORDERED: MACROBID100 MG PO (23:56)
[2017-09-01 00:29] VITALS: BP 119/62
== END 2017-09-01 00:32 | disposition home or self-care (01) ==
LOC: EME 21:00
DX: O23.41 Unspecified infection of urinary tract in pregnancy, first trimester (principal); O26.891 Other specified pregnancy related conditions, first trimester; R20.2 Paresthesia of skin; Z3A.11 11 weeks gestation of pregnancy; O99.341 Other mental disorders complicating pregnancy, first trimester; F32.9 Major depressive disorder, single episode, unspecified; Z87.442 Personal history of urinary calculi; Z86.73 Personal history of transient ischemic attack (TIA), and cerebral infarction without residual deficits; M41.9 Scoliosis, unspecified; Z88.1 Allergy status to other antibiotic agents; Z88.8 Allergy status to other drugs, medicaments and biological substances
CPT/HCPCS: 80053; 81003; 82550; 83690; 83735; 84100; 84702; 85027; 99281; 99285; J7030

== ENCOUNTER 2017-09-10 18:40 | Emergency (ER) | payer OTHER ==
[~2017-09-10] VITALS: Ht 160 cm; Wt 40.0 kg
[2017-09-10 19:33] LABS: ADD MIUA? YES; BILIRUBIN NEGATIVE; BLOOD SMALL; COLOR STRAW ((YELLOW)); GLUCOSE (STRIP) NEGATIVE; KETONES NEGATIVE; LEUKOCYTES NEGATIVE; NITRITE NEGATIVE; PROTEIN (STRIP) NEGATIVE; SPECIFIC GRAVITY 1.004 (1.000-1.030); UROBILINOGEN 0.2 MG/DL (0.2-1.0)
[2017-09-10 19:45] LABS: BACTERIA RARE /HPF; EPITHELIAL CELLS 1+ /HPF; MUCUS NONE SEEN /LPF; RED BLOOD CELLS 0-5 /HPF (0-5); WHITE BLOOD CELLS 0-5 /HPF (0-5)
[2017-09-10 20:13] LABS: HEMATOCRIT 31.7 % (36.0-46.0); MCH 29.2 PG (29.0-34.0); MCHC 35.3 G/DL (30.0-36.0); MCV 82.8 FL (83-99); PLATELET COUNT 276 K/uL (156-360); RBC DIS.WIDTH-CV 12.6 % (11.8-14.6); RBC DIS.WIDTH-SD 37.9 % (39-53); RED BLOOD COUNT 3.83 M/uL (3.80-5.20); WHITE BLOOD COUNT 14.1 K/uL (4.1-10.2)
[2017-09-10 20:19] LABS: CHLORIDE 108 mEq/L (99-109); POTASSIUM 3.6 mEq/L (3.7-5.4); SODIUM 137 mEq/L (136-147)
[2017-09-10 20:21] LABS: GLUCOSE 75 mg/dL (70-99)
[2017-09-10 20:23] LABS: ANION GAP 9 MEQ/L (2-14)
[2017-09-10 20:25] LABS: GFR ESTIMATE (CALCULATED) > 59 mL/min/
[2017-09-10 20:26] LABS: UREA NITROGEN (BUN) 5 mg/dL (9-23)
[2017-09-10 20:28] LABS: LIPASE 16 U/L (1.0-51.0)
[2017-09-10 20:59] LABS: QUANTITATIVE HCG 64442.1 MIU/ML
[2017-09-10] MEDS ORDERED: ZOFRAN ODT4 MG PO (21:15)
[2017-09-10] MEDS ORDERED: LORTAB 5-325 M1 EACH PO (21:15)
[2017-09-10 21:32] VITALS: BP 113/50
== END 2017-09-10 21:38 | disposition home or self-care (01) ==
LOC: EME 18:40
PROVIDERS: Physician Assistant Medical
DX: O26.891 Other specified pregnancy related conditions, first trimester (principal); R10.9 Unspecified abdominal pain; F32.9 Major depressive disorder, single episode, unspecified; Z87.442 Personal history of urinary calculi; G43.909 Migraine, unspecified, not intractable, without status migrainosus; Z86.73 Personal history of transient ischemic attack (TIA), and cerebral infarction without residual deficits; Z88.0 Allergy status to penicillin; Z88.8 Allergy status to other drugs, medicaments and biological substances
CPT/HCPCS: 76770; 80048; 81003; 83690; 84702; 85027; 99281; 99285; J2270; J2405; J7030

== ENCOUNTER 2017-09-14 21:22 | Emergency (ER) | payer OTHER ==
[~2017-09-14] VITALS: Ht 160 cm; Wt 41.2 kg
[~2017-09-14 21:22] MED LIST changes: +LORTAB 5-325 M1 EACH PO
[2017-09-14 22:05] LABS: HEMATOCRIT 38.4 % (36.0-46.0); MCH 28.6 PG (29.0-34.0); MCHC 34.4 G/DL (30.0-36.0); MCV 83.1 FL (83-99); MEAN PLAT.VOLUME 8.7 uM^3 (9.5-12.4); PLATELET COUNT 328 K/uL (156-360); RBC DIS.WIDTH-CV 12.8 % (11.8-14.6); RBC DIS.WIDTH-SD 38.5 % (39-53); RED BLOOD COUNT 4.62 M/uL (3.80-5.20); WHITE BLOOD COUNT 13.2 K/uL (4.1-10.2)
[2017-09-14 22:52] LABS: QUANTITATIVE HCG 76559.2 MIU/ML
[2017-09-14 23:37] LABS: ADD MIUA? YES; BILIRUBIN NEGATIVE; BLOOD SMALL; COLOR YELLOW ((YELLOW)); GLUCOSE (STRIP) NEGATIVE; KETONES 20; LEUKOCYTES TRACE; NITRITE NEGATIVE; PROTEIN (STRIP) 30; SPECIFIC GRAVITY 1.031 (1.000-1.030)
[2017-09-14 23:42] LABS: BACTERIA RARE /HPF; EPITHELIAL CELLS 1+ /HPF; HYALINE CASTS 0-5 /LPF; MUCUS 4+ /LPF; UCUL ADDED? YES; WHITE BLOOD CELLS 20-30 /HPF (0-5)
[2017-09-15 00:24] LABS: CHLORIDE 105 mEq/L (99-109); POTASSIUM 3.6 mEq/L (3.7-5.4); SODIUM 137 mEq/L (136-147)
[2017-09-15 00:26] LABS: GLUCOSE 90 mg/dL (70-99)
[2017-09-15 00:28] LABS: ANION GAP 11 MEQ/L (2-14); TOTAL BILIRUBIN 0.6 mg/dL (0.0-1.0)
[2017-09-15 00:30] LABS: ALKALINE PHOSPHATASE 47 IU/L (3-129); GFR ESTIMATE (CALCULATED) > 59 mL/min/
[2017-09-15 00:31] LABS: UREA NITROGEN (BUN) 10 mg/dL (9-23)
[2017-09-15 00:33] LABS: LIPASE 18 U/L (1.0-51.0)
[2017-09-15] MEDS ORDERED: OMEPRAZOLE20 MG PO (01:10)
[2017-09-15] MEDS ORDERED: ZOFRAN4 MG PO ×2 (01:10→03:42)
[2017-09-15] MEDS ORDERED: TYLENOL EXTRA500 MG PO (01:10)
[2017-09-15] MEDS ORDERED: SERTRALINE HCL25 MG PO (01:11)
[2017-09-15] MEDS ORDERED: BENADRYL ALLERG25 MG PO (01:11)
[2017-09-15] MEDS ORDERED: MACROBID100 MG PO (03:42)
[2017-09-15] MEDS ORDERED: KEFLEX500 MG PO (03:47)
[2017-09-15 04:43] VITALS: BP 104/58
== END 2017-09-15 04:44 | disposition home or self-care (01) ==
LOC: EME 21:22
DX: O23.02 Infections of kidney in pregnancy, second trimester (principal); O21.9 Vomiting of pregnancy, unspecified; Z3A.14 14 weeks gestation of pregnancy; O99.342 Other mental disorders complicating pregnancy, second trimester; F32.9 Major depressive disorder, single episode, unspecified; M41.9 Scoliosis, unspecified; Z87.442 Personal history of urinary calculi; Z86.73 Personal history of transient ischemic attack (TIA), and cerebral infarction without residual deficits; Z88.0 Allergy status to penicillin; Z88.8 Allergy status to other drugs, medicaments and biological substances
CPT/HCPCS: 76770; 76801; 80053; 81003; 83690; 84702; 85027; 87077; 87086; 87186; 99281; 99285; J0696; J2270; J2405; J7030

== ENCOUNTER 2017-09-27 21:18 | Emergency (ER) | payer OTHER ==
[~2017-09-27] VITALS: Ht 162.6 cm; Wt 39.7 kg
[~2017-09-27 21:18] MED LIST changes: +BENADRYL ALLERG25 MG PO; +OMEPRAZOLE20 MG PO; +SERTRALINE HCL25 MG PO; +TYLENOL EXTRA500 MG PO; +ZOFRAN4 MG PO
[2017-09-27 23:12] LABS: HEMATOCRIT 37.7 % (36.0-46.0); MCH 28.6 PG (29.0-34.0); MCHC 34.5 G/DL (30.0-36.0); MCV 82.9 FL (83-99); PLATELET COUNT 367 K/uL (156-360); RBC DIS.WIDTH-CV 12.5 % (11.8-14.6); RED BLOOD COUNT 4.55 M/uL (3.80-5.20); WHITE BLOOD COUNT 11.4 K/uL (4.1-10.2)
[2017-09-27 23:20] LABS: CHLORIDE 105 mEq/L (99-109); POTASSIUM 3.7 mEq/L (3.7-5.4); SODIUM 138 mEq/L (136-147)
[2017-09-27 23:20] LABS: APPEARANCE SL.HAZY ((CLEAR)); BILIRUBIN NEGATIVE; BLOOD NEGATIVE; COLOR YELLOW ((YELLOW)); GLUCOSE (STRIP) NEGATIVE; KETONES 80; LEUKOCYTES TRACE; NITRITE NEGATIVE; PROTEIN (STRIP) 30; SPECIFIC GRAVITY 1.021 (1.000-1.030); UROBILINOGEN 0.2 MG/DL (0.2-1.0)
[2017-09-27 23:22] LABS: GLUCOSE 73 mg/dL (70-99)
[2017-09-27 23:26] LABS: CREATININE 0.6 mg/dL (0.6-1.3); GFR ESTIMATE (CALCULATED) > 59 mL/min/
[2017-09-27 23:27] LABS: UREA NITROGEN (BUN) 6 mg/dL (9-23)
[2017-09-27 23:44] LABS: RED BLOOD CELLS NONE SEEN /HPF (0-5); WHITE BLOOD CELLS 15-20 /HPF (0-5)
[2017-09-27 23:45] LABS: BACTERIA 2+ /HPF; EPITHELIAL CELLS 1+ /HPF; MUCUS 3+ /LPF
[2017-09-28] MEDS ORDERED: ZOFRAN ODT4 MG PO (00:59)
[2017-09-28 01:06] VITALS: BP 135/90
== END 2017-09-28 01:06 | disposition home or self-care (01) ==
LOC: EME 21:18
PROVIDERS: Physician Assistant
DX: O20.9 Hemorrhage in early pregnancy, unspecified (principal); O99.282 Endocrine, nutritional and metabolic diseases complicating pregnancy, second trimester; E86.0 Dehydration; R11.0 Nausea; M54.2 Cervicalgia; Z86.73 Personal history of transient ischemic attack (TIA), and cerebral infarction without residual deficits; Z87.442 Personal history of urinary calculi; Z3A.15 15 weeks gestation of pregnancy
CPT/HCPCS: 80048; 81003; 85027; 87086; 99281; 99284; J7030

== ENCOUNTER 2017-10-02 22:11 | Emergency (ER) | payer OTHER ==
[~2017-10-02] VITALS: Ht 162.6 cm; Wt 40.9 kg
[2017-10-02 22:21] VITALS: BP 127/76
== END 2017-10-03 01:27 | disposition left against medical advice (07) ==
LOC: EME 22:11
DX: G43.909 Migraine, unspecified, not intractable, without status migrainosus (principal); Z53.21 Procedure and treatment not carried out due to patient leaving prior to being seen by health care provider

== ENCOUNTER 2017-10-08 20:14 | Emergency (ER) | payer OTHER ==
[~2017-10-08] VITALS: Ht 160 cm; Wt 41.2 kg
[2017-10-08 21:05] LABS: HEMATOCRIT 35.9 % (36.0-46.0); HEMOGLOBIN 12.3 G/DL (11.9-15.5); MCH 28.6 PG (29.0-34.0); MCHC 34.3 G/DL (30.0-36.0); MCV 83.5 FL (83-99); PLATELET COUNT 346 K/uL (156-360); RBC DIS.WIDTH-CV 12.8 % (11.8-14.6); RBC DIS.WIDTH-SD 38.8 % (39-53); WHITE BLOOD COUNT 12.3 K/uL (4.1-10.2)
[2017-10-08 21:23] LABS: APPEARANCE CLOUDY ((CLEAR)); BILIRUBIN NEGATIVE; BLOOD LARGE; COLOR AMBER ((YELLOW)); GLUCOSE (STRIP) NEGATIVE; KETONES 5; LEUKOCYTES MODERATE; NITRITE NEGATIVE; PROTEIN (STRIP) 100; SPECIFIC GRAVITY 1.029 (1.000-1.030); UROBILINOGEN 0.2 MG/DL (0.2-1.0)
[2017-10-08 21:43] LABS: BACTERIA 3+ /HPF; EPITHELIAL CELLS 2+ /HPF; MUCUS NONE SEEN /LPF; RED BLOOD CELLS TNTC /HPF (0-5); UCUL ADDED? YES
[2017-10-08] MEDS ORDERED: KEFLEX500 MG PO (22:33)
[2017-10-08 22:58] VITALS: BP 124/89
== END 2017-10-08 23:36 | disposition home or self-care (01) ==
LOC: EME 20:14
DX: O23.42 Unspecified infection of urinary tract in pregnancy, second trimester (principal); Z3A.17 17 weeks gestation of pregnancy; Z87.442 Personal history of urinary calculi; O99.342 Other mental disorders complicating pregnancy, second trimester; F32.9 Major depressive disorder, single episode, unspecified; Z86.73 Personal history of transient ischemic attack (TIA), and cerebral infarction without residual deficits; O99.89 Other specified diseases and conditions complicating pregnancy, childbirth and the puerperium; M41.9 Scoliosis, unspecified; Z88.1 Allergy status to other antibiotic agents
CPT/HCPCS: 76805; 81003; 84702; 85027; 87086; 99281; 99283

== ENCOUNTER 2017-10-24 19:58 | Emergency (ER) | payer OTHER ==
[~2017-10-24] VITALS: Ht 160 cm; Wt 43.4 kg
[2017-10-24 22:11] VITALS: BP 123/74
== END 2017-10-24 22:12 | disposition home or self-care (01) ==
LOC: EME 19:58
DX: O44.12 Complete placenta previa with hemorrhage, second trimester (principal); O23.42 Unspecified infection of urinary tract in pregnancy, second trimester; O99.352 Diseases of the nervous system complicating pregnancy, second trimester; G43.909 Migraine, unspecified, not intractable, without status migrainosus; Z3A.19 19 weeks gestation of pregnancy; Z86.73 Personal history of transient ischemic attack (TIA), and cerebral infarction without residual deficits; Z87.442 Personal history of urinary calculi; Z88.1 Allergy status to other antibiotic agents
CPT/HCPCS: 76815; 99281; 99283

== ENCOUNTER 2017-11-30 17:01 | Outpatient (CLI) | payer OTHER ==
[~2017-11-30] VITALS: Ht 160 cm; Wt 46.8 kg
[2017-11-30 17:41] VITALS: BP 103/57
[2017-11-30 19:17] LABS: SOURCE SWAB
[2017-11-30 19:27] LABS: APPEARANCE SL.HAZY ((CLEAR)); BILIRUBIN NEGATIVE; BLOOD NEGATIVE; COLOR YELLOW ((YELLOW)); GLUCOSE (STRIP) NEGATIVE; KETONES NEGATIVE; LEUKOCYTES TRACE; NITRITE NEGATIVE; PROTEIN (STRIP) NEGATIVE; SPECIFIC GRAVITY 1.004 (1.000-1.030); UROBILINOGEN 0.2 MG/DL (0.2-1.0)
[2017-11-30] MEDS ORDERED: DICLEGIS DR 101 EACH PO (19:28)
[2017-11-30] MEDS ORDERED: FLINTSTONES GU1 EACH PO (19:45)
[2017-11-30 19:46] LABS: AMPHETAMINE NEGATIVE (500 ng/mL); BARBITURATES NEGATIVE (200 ng/mL); BENZODIAZEPINES NEGATIVE (150 ng/mL); BUPRENORPHINE NEGATIVE (10 ng/mL); COCAINE NEGATIVE (150 ng/mL); METHADONE NEGATIVE (200 ng/mL); METHAMPHETAMINE NEGATIVE (500 ng/mL); OPIATES (MORPHINE) NEGATIVE (100 ng/mL); OXYCODONE NEGATIVE (100 ng/mL); PHENCYCLIDINE NEGATIVE (25 ng/mL); PROPOXYPHENE NEGATIVE (300 ng/mL); THC CANNABINOIDS NEGATIVE (50 ng/mL); TRICYCLIC ANTIDEPRESSANTS NEGATIVE (300 ng/mL)
[2017-11-30 20:07] VITALS: BP 105/59
[2017-11-30 20:10] LABS: BACTERIA 1+ /HPF; EPITHELIAL CELLS RARE /HPF; MUCUS NONE SEEN /LPF; RED BLOOD CELLS 0-5 /HPF (0-5); UCUL ADDED? NO; WHITE BLOOD CELLS 0-5 /HPF (0-5)
[2017-11-30 22:49] LABS: CANDIDA DNA PROBE NEGATIVE; GARDNERELLA DNA PROBE POSITIVE; TRICHOMONAS DNA PROBE NEGATIVE
== END 2017-11-30 20:20 | disposition home or self-care (01) ==
LOC: EME 17:01 → EDSTATUS 17:37 → LDRP-OP 17:38 → 2WEST 17:42
PROVIDERS: Advanced Practice Midwife
DX: O26.892 Other specified pregnancy related conditions, second trimester (principal); Z3A.24 24 weeks gestation of pregnancy; R51 Headache; R10.9 Unspecified abdominal pain
CPT/HCPCS: 59025; 81003; 87086; 87480; 87491; 87510; 87591; 87660; G0378